=== PATIENT | male | born 1960 | race Caucasian/White ===

== ENCOUNTER 2022-02-25 15:57 | Emergency (ER) | payer BC, SELFPAY ==
[2022-02-25 16:33] VITALS: BP 110/75; PULSE 63; RESP 18; TEMP 36.8; O2SAT 97; BMI 29.0
--- NOTE | 2022-02-25 18:08 | CRLHL7_ITS ---
For Patients: As a result of the Century Cures Act, medical imaging exams and procedure reports are released immediately into your electronic medical record. You may view this report before your referring provider. If you have questions, please contact your health care provider. INDICATION: Left flank pain. TECHNIQUE: CT abdomen and pelvis without contrast. COMPARISON: None. FINDINGS: Lower chest: Scattered dependent atelectasis. Small hiatal hernia. Liver: Normal in size and attenuation. No suspicious masses. Gallbladder and bile ducts: Cholelithiasis without cholecystitis. Pancreas: Unremarkable. No mass or inflammation. Spleen: Normal in size. No masses. Adrenal glands: Normal in size. No nodules. Kidneys: Left renal sinus cysts. Normal in size. No suspicious masses, stones, or hydronephrosis. GI tract: Gastric bypass. Mild colonic stool burden. Normal in caliber. No sign of mass or inflammation. Normal appendix. Vasculature: Mild aortoiliac arterial calcifications. Abdominal aorta is normal in caliber. Lymph nodes: No lymphadenopathy. Peritoneum/Abdominal Wall: Ventral abdominal hernia repair. Small fat containing umbilical hernia. No sign of mass or infiltration. No free air or significant free fluid. Pelvis: Prominent prostate gland. Mildly distended bladder. Bones: Degenerative changes. IMPRESSION: No acute intra-abdominal/pelvic abnormality, including obstructive uropathy. Mild colonic stool burden. Mildly distended bladder with minimal circumferential wall thickening. Prominent prostate gland. Constellation of findings could suggest chronic bladder outlet obstruction. Please note that all CT scans at this facility use dose modulation, iterative reconstruction, and/or weight-based dosing when appropriate to reduce radiation dose to as low as reasonably achievable. Dictated by Guy Fay MD @ 02/25/2022 7:23:31 PM (Electronically Signed)
--- NOTE | 2022-02-25 18:17 | ED.GENADULT ---
HPI - General Adult General Date Seen: 02/25/22 Chief complaint: Abdominal Pain Stated complaint: Left Abdominal Pain radiating from front to back Time Seen by Provider: 02/25/22 16:35 Source: patient History of Present Illness HPI narrative: The patient is a 61-year-old male status post gastric bypass about 8 years ago, who presents with some left flank and side pain that started overnight. He describes it as moderately severe overnight and throughout this morning although he says over the past couple of hours it has improved to some degree although it is not gone. Earlier it was radiating more into the abdomen although now it is more just in the side. He says that it has been constant and achy, and not particularly exacerbated by movement. Not associated with nausea or vomiting, fever, urinary symptoms, diarrhea, or any other symptoms. He did not try any medications at home. He did mention that he has had symptoms somewhat like this in the past, although not on the left side. He says that he has had abdominal pain cross the entire abdomen as recently as a couple of months ago which lasted for a couple of days, he thinks that was somewhat more severe, and ultimately it just went away. When this came on, he says he decided he wanted to get it checked out before it got that bad to find out what it was. He does not have a history of ulcers related to his gastric bypass, he says he is very careful not to take any ibuprofen. He does not take any medications such as a PPI. He denies black or bloody stools. He had a colonoscopy within the past couple of years which he says was unremarkable. He had a biopsy for possible prostate cancer which he says was also negative. He does not smoke or drink. Notes a history of diabetes and hypertension as well as high cholesterol. He takes medications for those. Denies chest pain or difficulty breathing. He notes a history of a couple of hernia repair surgeries. Denies other abdominal surgeries aside from the gastric bypass. Related Data Home Medications Medication Instructions Recorded Confirmed blood sugar diagnostic (Accu-Chek #10 ea 09/19/21 02/25/22 Guide test strips) glipizide 2.5 mg tablet, extended ea PO 09/19/21 02/25/22 release 24 hr lisinopril 5 mg tablet 5 mg PO QDAY 09/19/21 02/25/22 simvastatin 20 mg tablet 20 mg PO QDAY 09/19/21 02/25/22 sitagliptin phosphate 50 1 tab PO BID 09/19/21 02/25/22 mg-metformin 1,000 mg tablet (Janumet) empagliflozin 10 mg tablet mg 02/25/22 (Jardiance) Allergies Allergy/AdvReac Type Severity Reaction Status Date / Time zoloft Allergy Intermediate Hives Uncoded 02/25/22 15:22 Review of Systems Status of ROS: Reports: 10 or more systems reviewed and unremarkable except as noted in History and below [facility] Social History Smoking Status: Never smoker Exam Narrative: Exam Narrative: Vital signs as noted above. In general, an alert, nontoxic male. Appears comfortable. Head: Normocephalic, atraumatic. Eyes: Pupils are equal reactive. Extraocular movements are full. Conjunctivae are normal. ENT: Mucous membranes are moist. Throat is normal. Neck: Supple without lymphadenopathy. Heart: Regular rate and rhythm. No murmur or rub. Lungs: Clear bilaterally. No increased work of breathing, crackles or wheezes. No CVA tenderness. Abdomen: Soft and nontender. No organomegaly. No rebound guarding or rigidity. Extremities: Well perfused. No edema. No calf tenderness. Pulses intact. Neurologic: Patient is alert and oriented to person and place. Speech is fluent. Face is symmetric. Moves all extremities equally. Affect: Normal. Skin: Warm and dry. Well perfused. Const: Vital Signs, click to edit/add: Vital Signs - 24 hr 02/25/22 16:33 Temperature 98.2 F Pulse Rate [Right Pulse Oximeter] 63 Respiratory Rate 18 Blood Pressure [Ri ght Upper Arm] 110/75 Pulse Oximetry 97 Oxygen Delivery Me thod Room Air Documenting provider has reviewed patient's vital signs: yes Course Course Hospital Course: Patient requested something for pain, not related to ibuprofen as he tries to stay way from that given his gastric bypass. We did place an IV, will give some normal saline as well as 4 mg of morphine and 4 mg of Zofran. I checked basic labs including a CBC which showed a normal white blood cell count of 7.5 and hemoglobin of 14.4. Platelets normal. Metabolic panel was entirely normal, glucose was 104, lactate was 1. Creatinine was 0.7. CRP was less than 0.5. Lipase was 148 and LFTs were entirely normal. Urinalysis was obtained with the end of his stay and was negative for blood, negative for white blood cells. Initially talked with him about possible causes for his flank pain which would certainly include a musculoskeletal cause although he does not describe any changes with movement. The fact that he has had similar pain in various locations that lasted for couple of days and then resolves I think makes a more specific etiology such as renal colic less likely, however given reported severe pain with onset in the middle the night in the left flank, with radiation into the abdomen, I did elect to do a CT scan to rule that out. My review of the CT scan shows no evidence of kidney stone, hydronephrosis, perinephric fat stranding or other findings related to the kidney. Final radiology read is as follows:No acute intra-abdominal/pelvic abnormality, including obstructive uropathy. Mild colonic stool burden. Mildly distended bladder with minimal circumferential wall thickening. Prominent prostate gland. Constellation of findings could suggest chronic bladder outlet obstruction. Please note that all CT scans at this facility use dose modulation, iterative reconstruction, and/or weight-based dosing when appropriate to reduce radiation dose to as low as reasonably achievable. I did discuss the bladder outlet obstruction with the patient, while I think this may become a problem form I do not think it is likely causing his problems tonight. Likewise, while he does have gallstones I do not think this is the cause of his left flank pain tonight. He feels improved after the morphine. Abdominal exam remains benign. I did suggest to him that despite his avoidance of NSAIDs, the possibility of developing ulcers at the site of his anastomosis remains, and I think there is not a lot downside to starting a PPI for the time being, given that he has been having some abdominal pain and we do not have a diagnosis at this point. For now I think it is reasonable to let him go home. I do not have a clear explanation for his symptoms, but CT and lab work are reassuring. Would recommend follow-up with primary care over the next 1-2 weeks for recheck. If symptoms are persistent referral for endoscopy may be appropriate. If he has acute worsening, severe pain, vomiting, fever, bloody stools, etcetera, would recommend return to ER for more emergent re-evaluation. Vital Signs Vital signs: Initial Vital Signs Temperature 98.2 F 02/25/22 16:33 Temperature Source Temporal Artery Scan 02/25/22 16:33 Pulse Rate 63 02/25/22 16:33 Respiratory Rate 18 02/25/22 16:33 Blood Pressure 110/75 02/25/22 16:33 Blood Pressure Mean 86 02/25/22 16:33 Blood Pressure Position Sitting 02/25/22 16:33 Pulse Oximetry 97 02/25/22 16:33 Oxygen Delivery Method 02/25/22 16:33 Vital Signs Temperature 98.2 F 02/25/22 16:33 Pulse Rate 63 02/25/22 16:33 Respiratory Rate 18 02/25/22 16:33 Blood Pressure 110/75 02/25/22 16:33 Pulse Oximetry 97 02/25/22 16:33 Oxygen Delivery Method 02/25/22 16:33 Temperature 98.2 F 02/25/22 16:33 Pulse Rate 63 02/25/22 16:33 Respiratory Rate 18 02/25/22 16:33 Blood Pressure 110/75 02/25/22 16:33 Pulse Oximetry 97 02/25/22 16:33 Oxygen Delivery Method 02/25/22 16:33 Medical Decision Making Lab Data Labs: Lab Results 02/25/22 02/25/22 02/25/22 Range/Units 18:25 18:25 18:25 WBC 7.54 (4.50-11.00) K/uL RBC 4.66 (4.30-5.90) m/uL Hgb 14.4 (13.5-17.5) gm/dL Hct 43.1 (37.0-53.0) % MCV 93 (80-100) fL MCH 31 (26-34) pg MCHC 33 (32-36) gm/dL RDW Coeff of Rand 12.7 (11.5-15.5) % Plt Count 240 (140-440) K/uL Neut % (Auto) 65.4 (42.0-72.0) % Lymph % (Auto) 21.6 (20-44) % [place] % (Auto) 8.9 (0.0-11.0) % Eos % (Auto) 3.3 (0.0-7.0) % Baso % (Auto) 0.7 (0.0-3.0) % Neut # (Auto) 4.93 (1.7-7.0) K/uL Lymph # (Auto) 1.63 (0.90-2.90) K/uL [place] # (Auto) 0.70 (0.00-0.90) K/UL Eos # (Auto) 0.25 (0.00-0.50) K/uL Baso # (Auto) 0.05 (0.00-0.30) K/uL Sodium 144 (135-149) mmol/L Potassium 4.3 (3.6-5.1) mmol/L Chloride 112 (96-114) mmol/L Carbon Dioxide 24 (20-32) mmol/L BUN 14 (7-30) mg/dL Creatinine 0.7 (0.5-1.5) mg/dL Estimated Creat Clear 84.07 Estimated GFR 104 ml/min Glucose 104 (60-115) mg/dL Lactate 1.0 (0.5-1.9) mmol/L Calcium 9.3 (8.4-10.6) mg/dL Total Bilirubin 0.5 (0.1-1.5) mg/dL Direct Bilirubin 0.2 (0.0-0.5) mg/dL AST 29 (12-35) U/L ALT 31 (4-50) U/L Alkaline Phosphatase 68 (40-150) U/L C-Reactive Protein < 0.5 L (0.5-1.0) mg/dL Total Protein 6.8 (6.0-8.3) g/dL Albumin 4.3 (3.3-5.0) g/dL Lipase 148 (23-300) U/L Urine Color (Yellow) Urine Appearance (Clear) Urine pH (5.0-8.5) Ur Specific [place] (1.000-1.030) Urine Protein (Negative) Urine Glucose (UA) (Negative) Urine Ketones (Negative) Urine Blood (Negative) Urine Nitrite (Negative) Urine Bilirubin (Negative) Urine Urobilinogen (0.2-1.0) Ur Leukocyte Esterase (Negative) Urine RBC (0-2) Urine WBC (0-5) Ur Squamous Epith Cells (None-Few) Urine Bacteria (None) 02/25/22 Range/Units 19:49 WBC (4.50-11.00) K/uL RBC (4.30-5.90) m/uL Hgb (13.5-17.5) gm/dL Hct (37.0-53.0) % MCV (80-100) fL MCH (26-34) pg MCHC (32-36) gm/dL RDW Coeff of Rand (11.5-15.5) % Plt Count (140-440) K/uL Neut % (Auto) (42.0-72.0) % Lymph % (Auto) (20-44) % [place] % (Auto) (0.0-11.0) % Eos % (Auto) (0.0-7.0) % Baso % (Auto) (0.0-3.0) % Neut # (Auto) (1.7-7.0) K/uL Lymph # (Auto) (0.90-2.90) K/uL [place] # (Auto) (0.00-0.90) K/UL Eos # (Auto) (0.00-0.50) K/uL Baso # (Auto) (0.00-0.30) K/uL Sodium (135-149) mmol/L Potassium (3.6-5.1) mmol/L Chloride (96-114) mmol/L Carbon Dioxide (20-32) mmol/L BUN (7-30) mg/dL Creatinine (0.5-1.5) mg/dL Estimated Creat Clear Estimated GFR ml/min Glucose (60-115) mg/dL Lactate (0.5-1.9) mmol/L Calcium (8.4-10.6) mg/dL Total Bilirubin (0.1-1.5) mg/dL Direct Bilirubin (0.0-0.5) mg/dL AST (12-35) U/L ALT (4-50) U/L Alkaline Phosphatase (40-150) U/L C-Reactive Protein (0.5-1.0) mg/dL Total Protein (6.0-8.3) g/dL Albumin (3.3-5.0) g/dL Lipase (23-300) U/L Urine Color Yellow (Yellow) Urine Appearance Clear (Clear) Urine pH 6.5 (5.0-8.5) Ur Specific [place] 1.025 (1.000-1.030) Urine Protein Negative (Negative) Urine Glucose (UA) 2+ A (Negative) Urine Ketones Trace A (Negative) Urine Blood Negative (Negative) Urine Nitrite Negative (Negative) Urine Bilirubin Negative (Negative) Urine Urobilinogen 0.2 (0.2-1.0) Ur Leukocyte Esterase Negative (Negative) Urine RBC 0-2 (0-2) Urine WBC 0-2 (0-5) Ur Squamous Epith Cells None (None-Few) Urine Bacteria None (None) Discharge Plan Discharge Clinical Impression: Left flank pain Patient Disposition: Home, Self-Care Condition: Improved Instructions: Flank Pain (ED) Additional Instructions: Tylenol and or ice as needed. I would recommend taking medications such as omeprazole 40 mg daily given your history of gastric bypass, given the benign nature of this drug. Follow-up with your primary doctor in 1-2 weeks for recheck. If you have severe pain, new symptoms such as vomiting, bloody stools, fever, or other changes, return to the ER for repeat evaluation. Prescriptions: No Action lisinopril 5 mg tablet 5 mg PO QDAY simvastatin 20 mg tablet 20 mg PO QDAY glipizide 2.5 mg tablet extended release 24hr PO (DME) Accu-Chek Guide test strips Strip See Rx Instructions .ROUTE .MEDSUPPLY Qty: 10 Label Comments: USE DIRECTED 3-4 TIMES A DAY Rx Instructions: As directed Janumet 50-1,000 mg tablet 1 tab PO BID Label Comments: TAKE 1 TABLET BY MOUTH TWICE DAILY WITH MEALS Jardiance 10 mg tablet Label Comments: TAKE 1 TABLET BY MOUTH EVERY DAY Follow Up/Referrals: Provider,Not a Local [Referring] - Stand Alone Forms: [facility] Info Instructions
[2022-02-25] MEDS: ONDANSETRON 2 MG/ML inj 4 MG IVP (18:28)
[2022-02-25] MEDS: MORPHINE 4 MG/ML INJ IVP (18:28)
[2022-02-25] MEDS: 0.9 % SODIUM CHLORIDE 1000 ml 1,000 ML IV (18:28)
[2022-02-25 18:37] LABS: Basophils Absolute Auto 0.05 K/uL (0.00-0.30); Basophils Percent Auto 0.7 % (0.0-3.0); Eosinophils Absolute Auto 0.25 K/uL (0.00-0.50); Eosinophils Percent Auto 3.3 % (0.0-7.0); Hematocrit 43.1 % (37.0-53.0); Hemoglobin* 14.4 gm/dL (13.5-17.5); Immature Granulocytes Abs Auto 0.01 K/uL (0.00-0.30); Immature Granulocytes Pct Auto 0.1 %; Lymphocytes Absolute Auto 1.63 K/uL (0.90-2.90); Lymphocytes Percent Auto 21.6 % (20-44); Mean Corpuscular HGB Conc 33 gm/dL (32-36); Mean Corpuscular Hemoglobin 31 pg (26-34); Mean Corpuscular Volume 93 fL (80-100); Monocytes Percent Auto 8.9 % (0.0-11.0); Neutrophils Absolute Auto 4.93 K/uL (1.7-7.0); Neutrophils Percent Auto 65.4 % (42.0-72.0); Platelet Count* 240 K/uL (140-440); RDW Coefficient of Variation % 12.7 % (11.5-15.5); Red Blood Count 4.66 m/uL (4.30-5.90); White Blood Count* 7.54 K/uL (4.50-11.00)
[2022-02-25 18:45] LABS: Slide Review Reflex No
[2022-02-25 18:50] LABS: Albumin* 4.3 g/dL (3.3-5.0); Chloride* 112 mmol/L (96-114); Sodium* 144 mmol/L (135-149)
[2022-02-25 18:51] LABS: Potassium* 4.3 mmol/L (3.6-5.1)
[2022-02-25 18:52] LABS: Creatinine* 0.7 mg/dL (0.5-1.5); Est. Creatinine Clearance* 84.07; Estimated Glomerular Filt Rate 104 ml/min
[2022-02-25 18:53] LABS: Alanine Aminotransferase* 31 U/L (4-50); Alkaline Phosphatase* 68 U/L (40-150); Aspartate Amino Transferase* 29 U/L (12-35); Bilirubin Direct* 0.2 mg/dL (0.0-0.5); Bilirubin Total* 0.5 mg/dL (0.1-1.5); Blood Urea Nitrogen* 14 mg/dL (7-30); Calcium* 9.3 mg/dL (8.4-10.6); Carbon Dioxide* 24 mmol/L (20-32); Glucose* 104 mg/dL (60-115); Lipase* 148 U/L (23-300); Total Protein* 6.8 g/dL (6.0-8.3)
[2022-02-25 19:02] LABS: C Reactive Protein* < 0.5 mg/dL (0.5-1.0)
[2022-02-25 19:56] LABS: Appearance Urine Clear (Clear); Bilirubin Urine Negative (Negative); Blood Urine Negative (Negative); Color Urine Yellow (Yellow); Glucose Urine 2+ (Negative); Ketones Urine Trace (Negative); Leukocyte Esterase Urine Negative (Negative); Nitrite Urine Negative (Negative); Protein Urine Negative (Negative); Specific Gravity Urine 1.025 (1.000-1.030); Urobilinogen Urine 0.2 (0.2-1.0); pH Urine 6.5 (5.0-8.5)
[2022-02-25 20:15] LABS: RBC Urine 0-2 (0-2); WBC Urine 0-2 (0-5)
[2022-02-25 20:20] VITALS: BP 110/75; PULSE 63; RESP 18; TEMP 36.8
== END 2022-02-25 20:20 | disposition home or self-care (01) ==
PROVIDERS: Emergency Provider Emergency Medicine; PCP Family Medicine
DX: R10.9 Unspecified abdominal pain (principal); Z98.84 Bariatric surgery status
CPT/HCPCS: 36415; 74176; 80048; 80076; 81001; 83605; 83690; 85025; 86140; 96361; 96374; 96375; 99284; J2270; J2405; J7030

== ENCOUNTER 2022-08-23 17:47 | Outpatient (CLI) | payer BC, SELFPAY | END 2022-08-23 17:48 | disposition home or self-care (01) | LOC: NFLDREF 08-25 06:12 | PROVIDERS: PCP Family Medicine; Referring Provider Family Medicine; Visit Provider Nurse Practitioner Family | DX: R30.0 Dysuria (principal); N39.0 Urinary tract infection, site not specified | CPT/HCPCS: 87086; 87186 ==

== ENCOUNTER 2022-09-07 12:04 | Outpatient (CLI) | payer BC, SELFPAY | END 2022-09-07 12:05 | disposition home or self-care (01) | LOC: NFLDREF 09-08 11:48 | PROVIDERS: PCP Family Medicine; Referring Provider Family Medicine; Visit Provider Nurse Practitioner Family | DX: R30.0 Dysuria (principal); N39.0 Urinary tract infection, site not specified | CPT/HCPCS: 87086; 87186 ==

== ENCOUNTER 2022-10-20 12:39 | Outpatient (CLI) | payer BC, SELFPAY | END 2022-10-20 12:40 | disposition home or self-care (01) | LOC: NFLDREF 10-21 09:19 | PROVIDERS: PCP Family Medicine; Referring Provider Family Medicine; Visit Provider Family Medicine | DX: N39.0 Urinary tract infection, site not specified (principal); N30.01 Acute cystitis with hematuria; C61 Malignant neoplasm of prostate; N40.1 Benign prostatic hyperplasia with lower urinary tract symptoms; N13.8 Other obstructive and reflux uropathy; R33.9 Retention of urine, unspecified | CPT/HCPCS: 87086; 87186 ==

== ENCOUNTER 2022-11-12 18:03 | Outpatient (CLI) | payer BC, SELFPAY | END 2022-11-12 18:04 | disposition home or self-care (01) | LOC: NFLDREF 11-13 07:33 | PROVIDERS: PCP Family Medicine; Referring Provider Family Medicine; Visit Provider Nurse Practitioner Family | DX: R30.0 Dysuria (principal); N30.90 Cystitis, unspecified without hematuria | CPT/HCPCS: 87086; 87186 ==

== ENCOUNTER 2022-12-16 16:50 | Outpatient (CLI) | payer BC, SELFPAY | END 2022-12-16 16:51 | disposition home or self-care (01) | PROVIDERS: PCP Family Medicine; Referring Provider Family Medicine; Visit Provider Registered Nurse | DX: R30.0 Dysuria (principal); N30.90 Cystitis, unspecified without hematuria | CPT/HCPCS: 87086; 87186 ==

== ENCOUNTER 2023-02-22 12:53 | Outpatient (CLI) | payer BC, SELFPAY | END 2023-02-22 12:54 | disposition home or self-care (01) | LOC: NFLDREF 02-26 11:32 | PROVIDERS: PCP Family Medicine; Referring Provider Family Medicine; Visit Provider Registered Nurse | DX: N48.1 Balanitis (principal); N39.0 Urinary tract infection, site not specified | CPT/HCPCS: 87077; 87086; 87186 ==